=== PATIENT | male | born 1945 | race Hispanic/Latino ===

== ENCOUNTER 2018-03-09 11:18 | Inpatient (IN) | payer OTHER ==
[~2018-03-09] VITALS: Ht 162.6 cm; Wt 86.5 kg
[2018-03-09] MEDS ORDERED: ASPIRIN 325 MG TABLET ONE (11:33)
[2018-03-09 11:40] LABS: BASOPHILS % (AUTO) 0.3 % (0.0-5.0); EOSINOPHILS % (AUTO) 1.8 % (0.0-8.0); LYMPHOCYTES % (AUTO) 22.4 % (21.0-51.0); MEAN CORPUSCULAR HEMOGLOBIN 28.7 pg (27.0-33.0); MEAN CORPUSCULAR HGB CONC 33.2 g/dL (32.0-36.0); MEAN CORPUSCULAR VOLUME 86.4 fL (79-99); MONOCYTES % (AUTO) 8.9 % (3.0-13.0); NEUTROPHILS % (AUTO) 66.6 % (40.0-77.0); PLATELET COUNT (AUTO) 208 K/uL (130-400); RED BLOOD CELL COUNT(AUTO) 5.67 MIL/uL (4.50-6.20); RED CELL DISTRIBUTION WIDTH 13.6 % (11.0-15.5)
[2018-03-09 11:52] LABS: CREATININE 2.1 mg/dL (0.5-1.5); POTASSIUM 3.9 mmol/L (3.5-5.1)
[2018-03-09 11:57] LABS: INR 0.95 (0.85-1.15); PARTIAL THROMBOPLASTIN TIME 27.1 SEC (26.3-35.5)
[2018-03-09 12:05] LABS: ALBUMIN 3.8 g/dL (3.5-5.0); BILIRUBIN,TOTAL 0.4 mg/dL (0.2-1.0)
[2018-03-09 12:09] LABS: B-TYPE NATRIURETIC PEPTIDE 315 pg/mL (0-100)
[2018-03-09 14:45] LABS: ABG HCO3 24.6 mmol/L (21.0-28.0); ABG OXYGEN SATURATION 98.5 % (95.0-99.0); ABG PCO2 40 mmHg (35-48)
[2018-03-09] MEDS ORDERED: SODIUM CHLORIDE 0.9% 10 ML VIAL IVP PRN (16:45)
[2018-03-09] MEDS ORDERED: FUROSEMIDE 10 MG/ML 4ML VIAL IVP SCH (17:00)
[2018-03-09] MEDS ORDERED: FUROSEMIDE 10 MG/ML 4ML VIAL ONE (17:03)
[2018-03-09] MEDS ORDERED: ENOXAPARIN SODIUM 40 MG/0.4 ML SYRINGE SQ ONE (17:03)
[2018-03-09 21:11] LABS: CREATINE KINASE MB 0.9 ng/mL (0.5-3.6); CREATINE KINASE, TOTAL 374 U/L (21-232); MYOGLOBIN 101 ng/mL (10-92); TROPONIN I < 0.04 ng/mL (0.00-0.06)
[2018-03-10 00:51] LABS: CREATINE KINASE MB 0.8 ng/mL (0.5-3.6); CREATINE KINASE, TOTAL 285 U/L (21-232); MYOGLOBIN 79 ng/mL (10-92); TROPONIN I < 0.04 ng/mL (0.00-0.06)
[2018-03-10 04:45] VITALS: BP 149/105
[2018-03-10 05:12] VITALS: BP 146/89
[2018-03-10 06:35] LABS: CREATININE 2.2 mg/dL (0.5-1.5); POTASSIUM 3.5 mmol/L (3.5-5.1); THYROID STIMULATING HORMONE 2.19 uIU/mL (0.36-3.74)
[2018-03-10 07:26] VITALS: BP 152/96
[2018-03-10] MEDS ORDERED: ENOXAPARIN SODIUM 40 MG/0.4 ML SYRINGE SQ SCH (09:00)
[2018-03-10] MEDS ORDERED: ASPIRIN 325 MG TABLET PO SCH (09:00)
[2018-03-10 11:13] VITALS: BP 136/81
[2018-03-10] MEDS ORDERED: LORA10TA7 PO (14:14)
[2018-03-10] MEDS ORDERED: GABA-529 PO (14:14)
[2018-03-10] MEDS ORDERED: MIRT30TA6 PO (14:14)
[2018-03-10] MEDS ORDERED: LEVO0.5P2 MC (14:14)
[2018-03-10] MEDS ORDERED: CARV25TA PO (14:14)
[2018-03-10] MEDS ORDERED: HYDR-4381 PO (14:14)
[2018-03-10] MEDS ORDERED: ATOR20TA65 PO (14:14)
[2018-03-10] MEDS ORDERED: BISA5TAB12 PO (14:14)
[2018-03-10] MEDS ORDERED: DOCU100C33 PO (14:14)
[2018-03-10] MEDS ORDERED: OMEP20TA25 PO (14:14)
[2018-03-10] MEDS ORDERED: AMLO10TA2 PO (14:14)
[2018-03-10] MEDS ORDERED: HYDR-4154 PO (14:14)
[2018-03-10] MEDS ORDERED: APIXABAN 5 MG TABLET PO SCH (15:00)
[2018-03-10 16:08] VITALS: BP 152/94
== END 2018-03-10 17:50 | disposition home or self-care (01) | DRG 291 ==
LOC: EDH 11:18 → EDHIP 14:35 → 2AH 03-10 04:37
PROVIDERS: ADMIT Family Medicine; ATTEND Family Medicine
DX: I13.0 Hypertensive heart and chronic kidney disease with heart failure and stage 1 through stage 4 chronic kidney disease, or unspecified chronic kidney disease (principal); I50.33 Acute on chronic diastolic (congestive) heart failure; E11.21 Type 2 diabetes mellitus with diabetic nephropathy; I48.91 Unspecified atrial fibrillation; I69.354 Hemiplegia and hemiparesis following cerebral infarction affecting left non-dominant side; E66.9 Obesity, unspecified; E78.5 Hyperlipidemia, unspecified; N18.3 Chronic kidney disease, stage 3 (moderate); E03.9 Hypothyroidism, unspecified; G47.33 Obstructive sleep apnea (adult) (pediatric); R07.89 Other chest pain; R79.89 Other specified abnormal findings of blood chemistry; E11.22 Type 2 diabetes mellitus with diabetic chronic kidney disease; Z91.19 Patient's noncompliance with other medical treatment and regimen; Z79.899 Other long term (current) drug therapy; Z68.32 Body mass index [BMI] 32.0-32.9, adult
CPT/HCPCS: 36415; 36600; 71045; 80048; 80053; 82550; 82553; 82803; 82948; 83874; 83880; 84443; 84484; 85025; 85378; 85610; 85730; 93005; 93306; J1650; J1940

== ENCOUNTER 2018-12-22 14:23 | Emergency (ER) | payer OTHER ==
[~2018-12-22 14:23] MED LIST: AMLO10TA7 PO; ATOR20TA65 PO; BISA5TAB12 PO; CARV25TA PO; DOCU100C33 PO; GABA-529 PO; HYDR-4154 PO; HYDR-4381 PO; LEVO0.5P2 MC; LORA10TA7 PO; MIRT30TA6 PO; OMEP20TA25 PO
[2018-12-22 15:57] LABS: BASOPHILS % (AUTO) 0.4 % (0.0-5.0); EOSINOPHILS % (AUTO) 2.7 % (0.0-8.0); HEMATOCRIT 45.5 % (42-54); MEAN CORPUSCULAR HEMOGLOBIN 27.9 pg (27.0-33.0); MEAN CORPUSCULAR HGB CONC 32.9 g/dL (32.0-36.0); MEAN CORPUSCULAR VOLUME 84.8 fL (79-99); MONOCYTES % (AUTO) 6.1 % (3.0-13.0); NEUTROPHILS % (AUTO) 68.8 % (40.0-77.0); PLATELET COUNT (AUTO) 196 K/uL (130-400); RED BLOOD CELL COUNT(AUTO) 5.37 MIL/uL (4.50-6.20); RED CELL DISTRIBUTION WIDTH 14.4 % (11.0-15.5); WHITE BLOOD COUNT (AUTO) 7.1 K/uL (4.8-10.8)
[2018-12-22 16:06] LABS: CREATININE 2.1 mg/dL (0.5-1.5); POTASSIUM 3.4 mmol/L (3.5-5.1)
[2018-12-22 16:08] LABS: INR 0.98 (0.85-1.15); PARTIAL THROMBOPLASTIN TIME 31.3 SEC (26.3-35.5); PROTHROMBIN TIME 10.3 SEC (9.6-11.6)
[2018-12-22 16:10] LABS: ALBUMIN 3.3 g/dL (3.5-5.0); BILIRUBIN,TOTAL 0.4 mg/dL (0.2-1.0); CRP QUANTITATIVE 8.4 mg/L (0.00-9.0); TOTAL PROTEIN, SERUM 6.5 g/dL (6.0-8.3)
[2018-12-22 16:31] LABS: B-TYPE NATRIURETIC PEPTIDE 244 pg/mL (0-100)
[2018-12-22 17:14] LABS: ERYTHROCYTE SEDIMENTATION RATE 4 MM/HR (0-20)
== END 2018-12-22 16:05 | disposition home or self-care (01) ==
LOC: EDH 14:23
DX: M71.21 Synovial cyst of popliteal space [Baker], right knee (principal); E11.9 Type 2 diabetes mellitus without complications; I10 Essential (primary) hypertension; E78.5 Hyperlipidemia, unspecified; F32.9 Major depressive disorder, single episode, unspecified
CPT/HCPCS: 36415; 71045; 80053; 82550; 83880; 84484; 85025; 85610; 85651; 85730; 86140; 93005; 93970